=== PATIENT | female | born 1990 | race Caucasian/White ===

== ENCOUNTER 2016-10-09 14:04 | Outpatient (CLI) | payer BC ==
[2016-10-09 14:51] LABS: BASOPHILS % 0.9 (0.0-1.5); MEAN CORPUSCULAR HEMOGLOBIN 28.4 pg (28.0-34.0); MEAN CORPUSCULAR VOLUME 85.3 fl (80.0-100.0); MONOCYTES % 3.1 % (0.0-11.0); NEUTROPHILS # 3.9 # k/uL (1.4-7.7)
[2016-10-09 14:58] LABS: eGFR (African) > 60; eGFR (Non-African) > 60
--- NOTE | 2016-10-09 15:18 | Diagnostic Imaging Report ---
JAYESH SMALL [facility] [address] [facility] [address] [place] [address]. [id number] Report Submission Date: October 09, 2016 3:10:52 PM CDT Patient Study Name: PUNEET ACEVEDO Date: October 09, 2016 2:23:56 PM CDT Modality Type: CR Gender: F Description: UPPER EXTREMITY : 89 Institution: [facility] Physician: JAYESH SMALL 3 views of the left hand History: LEFT 4TH METACARPAL HAND PAIN X 1 DAY, NO INJURY Findings: No comparison studies No evidence of acute fracture or dislocation of the left hand. Joint spaces are preserved Soft tissues are within normal limits Impression: No evidence of acute fracture or dislocation of the left hand. Electronically signed on October 09, 2016 3:10:52 PM CDT by: Alexia GUERRA
[2016-10-10 00:31] LABS: VITAMIN D, 25-HYDROXY 29 ng/mL (30-100)
== END 2016-10-09 14:05 ==
LOC: RAD 14:04
PROVIDERS: ATTEND Physician Assistant
DX: R53.83 Other fatigue (principal); M79.642 Pain in left hand
CPT/HCPCS: 36415; 73130; 80053; 82306; 82607; 85025

== ENCOUNTER 2016-10-31 13:51 | Outpatient (CLI) | payer BC ==
--- NOTE | 2016-10-31 16:19 | Diagnostic Imaging Report ---
[facility] [address] [facility] [address] [place], [place]. [address] Report Submission Date: Oct 31, 2016 2:59:01 PM CDT Patient Study Name: PUNEET ACEVEDO Date: Oct 31, 2016 2:06:48 PM CDT Modality Type: CT\SR Gender: F Description: CT BRAIN W/O CONTRAST : 89 Institution: [facility] Physician: RANULFO DALAL Examination: CT head without contrast History: Dizziness Comparison exam: None available Technique: Noncontrast head CT protocol. Findings: Ventricles and sulci are appropriate for patient age. Cerebrocerebellar parenchyma demonstrates normal attenuation. No evidence for parenchymal hemorrhage. No evidence for mass or mass effect. No midline shift. No extra axial fluid collections. Partial visualization of the paranasal sinuses , mastoid air cells, orbits, skull and scalp without gross regularity. Impression: No acute parenchymal process. No hemorrhage. Electronically signed on Oct 31, 2016 2:59:01 PM CDT by: Myron GUERRA
== END 2016-10-31 14:00 ==
LOC: RAD 13:51
PROVIDERS: ATTEND Physician Assistant
DX: R41.0 Disorientation, unspecified (principal); S09.90XA Unspecified injury of head, initial encounter; X58.XXXA Exposure to other specified factors, initial encounter; Y93.9 Activity, unspecified; Y99.9 Unspecified external cause status
CPT/HCPCS: 70450

== ENCOUNTER 2017-12-22 14:53 | Outpatient (CLI) | payer BC | END 2017-12-22 14:55 | LOC: LAB 14:53 | PROVIDERS: ATTEND Family Medicine | DX: N93.8 Other specified abnormal uterine and vaginal bleeding (principal) | CPT/HCPCS: 36415; 84702 ==

== ENCOUNTER 2018-04-16 16:32 | Outpatient (CLI) | payer BC | END 2018-04-16 16:33 | LOC: LABRHC 16:32 | PROVIDERS: ATTEND Physician Assistant | DX: R35.0 Frequency of micturition (principal) | CPT/HCPCS: 87086 ==

== ENCOUNTER 2019-02-12 08:23 | Outpatient (CLI) | payer OTHER ==
--- NOTE | 2019-03-03 11:33 | Diagnostic Imaging Report ---
ROOSEVELT MONZON [facility] [address] [facility] [address] [address] Report Submission Date: Feb 12, 2019 9:30:56 AM CDT Patient Study Name: PUNEET ACEVEDO Date: Feb 12, 2019 8:25:38 AM CDT Modality Type: US Gender: F Description: RUQ ABDOMEN : 89 Institution: [facility] Physician: ROOSEVELT MONZON Examination: Ultrasound Abdomen History: RUQ PAIN, ELEVATED LFT Findings: Sonographic evaluation of the right upper quadrant demonstrates the gallbladder without stones or sludge. Gallbladder wall measures 29 mm. Common bile duct measures 3.7 mm. No intrahepatic biliary dilation. Liver demonstrates normal homogeneous echogenicity. No mass or cyst. Normal flow on color analysis. Right kidney measures 10.5 cm in length. No cortical mass or cyst. No hydronephrosis. Pancreatic region without gross irregularity. Impression: No gallstone or obstruction. Unremarkable abdominal ultrasound. Electronically signed on Feb 12, 2019 9:30:56 AM CDT by: Myron GUERRA
== END 2019-02-12 08:40 ==
LOC: RAD 08:23
PROVIDERS: ATTEND Family Medicine
DX: R10.11 Right upper quadrant pain (principal); R79.89 Other specified abnormal findings of blood chemistry
CPT/HCPCS: 76705